=== PATIENT | male | born 1955 | race Caucasian/White ===

== ENCOUNTER 2023-07-14 05:51 | Emergency (ER) | payer OTHER ==
[2023-07-14] MEDS ORDERED: NA CHLORIDE 0.9% 1,000 ML ONE (06:51)
[2023-07-14 06:55] LABS: Absolute Basophils 0.1 K/uL (0-0.5); Absolute Eosinophils 0.4 K/uL (0-0.5); Absolute Lymphocytes (CBC) 2.5 K/uL (0.7-4.9); Absolute Monocytes 0.8 K/uL (0.1-1.3); Absolute Neutrophil 5.4 K/uL (1.8-8.0); Basophils % 0.6 % (0-1.3); Eosinophils % 4.1 % (0-4.4); Hematocrit 44.8 % (39.6-49.0); Hemoglobin 15.1 g/dL (13.6-17.9); Lymphocytes % 27.7 % (15.3-44.8); MCH 31.3 pg (27.0-35.0); MCHC 33.7 g/dL (32.0-36.0); MPV 7.8 fL (7.6-11.3); Monocytes % 8.7 % (3.3-12.3); Neutrophils % 58.9 % (41.7-73.7); Nucleated Red Blood Cells % 0.1 % (0-0); Platelets 316 thou/uL (152-406); RBC Red Blood Cell Count 4.82 M/uL (4.33-5.43); Red Cell Distribution Width 13.4 % (12.1-15.2)
[2023-07-14 07:09] LABS: Albumin 3.6 g/dL (3.4-5.0); Albumin/Globulin Ratio 0.8 (1.1-1.8); Anion Gap 6.1 mEq/L (5.0-15.0); Bilirubin Direct 0.2 mg/dL (0-0.2); Bilirubin Indirect, Calculated 0.5 mg/dL (0.2-0.8); Bilirubin Total 0.7 mg/dL (0.2-1.0); Globulin 4.4 g/dL (2.3-3.5); Magnesium 1.9 mg/dL (1.6-2.4); Potassium 4.1 mEq/L (3.5-5.1); Thyroid Stimulating Hormone 2.61 uIU/mL (0.358-3.740); Troponin High Sensitivity 12.2 pg/mL (<58.9)
--- NOTE | 2023-07-14 08:59 | ER ---
Nurse's Notes [facility] Name: Robson Kilgore Age: 67 yrs Sex: Male : 1955 Arrival Date: 07/14/2023 Time: 05:51 Bed 4 Private MD: Diagnosis: Unspecified atrial flutter Presentation: 07/13 05:58 Chief complaint: Patient states: SOB with elevated HR 153,onset 0400 this AM. Patient pf1 denies any chest pain. 05:58 Method Of Arrival: Wheelchair pf1 05:58 Coronavirus screen: Vaccine status: Patient reports being unvaccinated. Client denies pf1 travel out of the [place] in the last 14 days. Ebola Screen: Patient negative for fever greater than or equal to 101.5 degrees Fahrenheit, and additional compatible Ebola Virus Disease symptoms. Initial Sepsis Screen: Does the patient meet any 2 criteria? HR > 90 bpm. No. Patient's initial sepsis screen is negative. Does the patient have a suspected source of infection? No. Patient's initial sepsis screen is negative. Risk Assessment: Do you want to hurt yourself or someone else? Patient reports no desire to harm self or others. Onset of symptoms was July 14, 2023 at 04:00. 05:58 Acuity: ARLETTE 2 pf1 Triage Assessment: 05:58 General: Appears in no apparent distress. comfortable, well groomed, well developed, pf1 Behavior is calm, cooperative, appropriate for age, quiet. Pain: Denies pain. 05:58 Cardiovascular: Reports shortness of breath, with elevated HR 153. since 0400. pf1 Respiratory: Reports shortness of breath with elevated HR 153 Airway is patent Respiratory effort is even, unlabored, Respiratory pattern is regular, symmetrical. Historical: - Allergies: 06:18 No Known Allergies; pf1 - PMHx: 06:18 Hypertensive disorder; Hypercholesterolemia; pf1 06:20 BPH; GERD; Asthma; pre-diabetic; pf1 - PSHx: 06:18 carpal tunnel; pf1 - Immunization history:: Adult Immunizations not up to date, Client reports having NOT received the Covid vaccine. Last tetanus immunization: < 10 years ago Flu vaccine is not up to date. - Infectious Disease History:: Denies. - Family history:: not pertinent. - Social history:: Smoking status: Patient reports the use of cigarette tobacco products, denies chronic smoking, but will smoke occasionally, cigars, Patient uses alcohol, on a daily basis. Patient/guardian denies using street drugs. Screenin:04 [facility] ED Fall Risk Assessment (Adult) History of falling in the last 3 months, lg3 including since admission No falls in past 3 months (0 pts) Confusion or Disorientation No (0 pts) Intoxicated or Sedated No (0 pts) Impaired Gait No (0 pts) Mobility Assist Device Used No (0 pt) Altered Elimination No (0 pt) Score/Fall Risk Level 0 - 2 = Low Risk Oriented to surroundings, Maintained a safe environment, Educated pt \T\ family on fall prevention, incl call for assistance when getting out of bed, Assessed \T\ reinforced patient's understanding of fall precautions. Abuse screen: Denies threats or abuse. Denies injuries from another. Nutritional screening: No deficits noted. Tuberculosis screening: No symptoms or risk factors identified. Assessment: 06:04 General: Appears in no apparent distress. uncomfortable, Behavior is calm, cooperative. lg3 Pain: Denies pain. Neuro: No deficits noted. Stein Agitation-Sedation Scale (RASS): 0 - Alert and Calm Level of Consciousness is awake, alert, obeys commands, Oriented to person, place, time, situation. Cardiovascular: Reports palpitations, shortness of breath, Denies chest pain, Rhythm is atrial flutter. Respiratory: Reports shortness of breath at rest Airway is patent Trachea midline Respiratory effort is even, unlabored, Respiratory pattern is regular, symmetrical, Breath sounds are clear bilaterally. GI: No deficits noted. No signs and/or symptoms were reported involving the gastrointestinal system. Abdomen is round non-distended, obese. : No deficits noted. No signs and/or symptoms were reported regarding the genitourinary system. EENT: No deficits noted. No signs and/or symptoms were reported regarding the EENT system. Derm: No deficits noted. No signs and/or symptoms reported regarding the dermatologic system. Skin is intact, is healthy with good turgor, Skin is dry, Skin is normal, Skin temperature is warm. Musculoskeletal: No deficits noted. No signs and/or symptoms reported regarding the musculoskeletal system. Circulation, motion, and sensation intact. Range of motion: intact in all extremities. 07:00 Reassessment: RECD REPORT FROM SUSHMA LAY. 67YO WM P/W SOB AND AFIB/RVR, PT CURRENTLY IN bp SR. 08:12 Reassessment: Patient appears in no apparent distress at this time. Patient is alert, bp oriented x 3, equal unlabored respirations, skin warm/dry/pink. REPEAT TROP SENT. Patient states symptoms have improved. 09:06 Reassessment: No changes from previously documented assessment. Patient and/or family mb9 updated on plan of care and expected duration. Pain level reassessed. Patient is alert, oriented x 3, equal unlabored respirations, skin warm/dry/pink. Vital Signs: 05:58 BP 125 / 103; Pulse 155; Resp 20; Temp 98.3; Pulse Ox 97% on R/A; Weight 112.04 kg; pf1 Height 5 ft. 10 in. ; Pain 0/10; 06:34 BP 81 / 59; Pulse 89; Resp 16 S; Pulse Ox 96% on R/A; lg3 07:51 BP 120 / 71; Pulse 70; ec2 08:00 BP 120 / 71; Pulse 65; Resp 11; Pulse Ox 96% ; bp 09:07 BP 122 / 74; Pulse 68; Resp 16; Pulse Ox 100% on R/A; mb9 05:58 Body Mass Index 35.44 (112.04 kg, 177.8 cm) pf1 05:58 Pain Scale: Adult pf1 ED Course: 05:54 Patient arrived in ED. mr 05:57 Ion Desir MD is Attending Physician. rt 06:04 Patient has correct armband on for positive identification. Placed in gown. Bed in low lg3 position. Call light in reach. Side rails up X 1. Client placed on continuous cardiac and pulse oximetry monitoring. NIBP monitoring applied. electronic device monitor on. Door closed. Noise minimized. Warm blanket given. Family accompanied patient. 06:04 Initial lab(s) drawn, by ED staff, sent to lab. EKG done, by ED staff, reviewed by Ion Desir MD. Inserted saline lock: 20 gauge in right antecubital area, using aseptic technique. Blood collected. 06:18 Triage completed. pf1 06:25 XRAY Chest (1 view) In Process Unspecified. EDMS 06:34 EKG done, by ED staff, reviewed by Ion Desir MD. lg3 06:53 Troponin HS Sent. wm 06:53 NT PRO-BNP Sent. wm 06:53 Magnesium Sent. wm 06:53 LFT's Sent. wm 06:53 CBC with Diff Sent. wm 06:53 Basic Metabolic Panel Sent. wm 06:53 TSH Sent. wm 07:05 Attending Physician role handed off by Ion Desir MD ec2 07:05 David Hannah MD is Attending Physician. ec2 07:09 Mike Neal, RN is Primary Nurse. bp 08:30 Troponin High Sensitivity Sent. bp 08:30 EKG done, by ED staff, reviewed by David Hannah MD. bp 08:59 Juan Albright MD is Referral Physician. ec2 09:07 No provider procedures requiring assistance completed. IV discontinued, intact, mb9 bleeding controlled, No redness/swelling at site. Pressure dressing applied. Administered Medications: 06:14 CANCELLED (Duplicate Order): [id number] mg IVP once; Over 2 minutes rt 06:57 Drug: NS 0.9% IV 1000 ml IV at 1000 ml once Route: IV; Rate: 1000 ml; Site: right jw7 antecubital; 09:15 Follow up: IV Status: Completed infusion; IV Intake: 1000ml bp 09:15 Not Given (Physician Discretion): [id number] mg IVP once; Over 2 Minutes bp Intake: 09:15 IV: 1000ml; Total: 1000ml. bp Outcome: 08:59 Discharge ordered by . ec2 09:07 Discharged to home ambulatory, with family, mb9 09:07 Condition: stable 09:07 Discharge instructions given to patient, Instructed on discharge instructions, follow up and referral plans. Demonstrated understanding of instructions, follow-up care, medications, Prescriptions given X 1, 09:07 Patient left the ED. mb9 Signatures: Dispatcher [employer] EDUT CortesHali, Reg Reg mr Mike Neal, RN RN Diya Akhtar RN RN gwyn3 Akosua Westfall Sushma Campbell RN RN jwHali Todd RN RN mb9 Ion Desir MD MD rt Molly Rubin RN RN pf1 David Hannah MD MD ec2 Corrections: (The following items were deleted from the chart) 06:22 06:20 PMHx: pre-debatic; pf1 pf1
--- NOTE | 2023-07-14 08:59 | EDPHYS ---
Physician Documentation [facility] Name: Robson Kilgore Age: 67 yrs Sex: Male : 1955 Arrival Date: 07/14/2023 Time: 05:51 Bed 4 Private MD: ED Physician David Hannah HPI: 07/13 06:19 This 67 yrs old Male presents to ER via Wheelchair with complaints of Breathing rt Difficulty, Fast heart rate. 06:19 Patient presents to the ED with reported difficulty breathing starting about 3 in the rt morning. States that the symptoms have persisted. It is worse with exertion, better with rest. Denies orthopnea. Denies chest pain. Does report a lightheadedness, denies other acute complaints, symptoms are moderate in severity, no other aggravating or alleviating factors.. Historical: - Allergies: 06:18 No Known Allergies; pf1 - PMHx: 06:18 Hypertensive disorder; Hypercholesterolemia; pf1 06:20 BPH; GERD; Asthma; pre-diabetic; pf1 - PSHx: 06:18 carpal tunnel; pf1 - Immunization history:: Adult Immunizations not up to date, Client reports having NOT received the Covid vaccine. Last tetanus immunization: < 10 years ago Flu vaccine is not up to date. - Infectious Disease History:: Denies. - Family history:: not pertinent. - Social history:: Smoking status: Patient reports the use of cigarette tobacco products, denies chronic smoking, but will smoke occasionally, cigars, Patient uses alcohol, on a daily basis. Patient/guardian denies using street drugs. ROS: 06:19 Constitutional: Negative for fever, chills, and weight loss, Cardiovascular: Negative rt for chest pain, palpitations, and edema, Abdomen/GI: Negative for abdominal pain, nausea, vomiting, diarrhea, and constipation, MS/Extremity: Negative for injury and deformity, Skin: Negative for injury, rash, and discoloration, 06:19 Respiratory: Positive for shortness of breath, Negative for cough, 06:19 Neuro: Positive for dizziness, Negative for altered mental status, Exam: 06:19 Constitutional: This is a well developed, well nourished patient who is awake, alert, rt and in no acute distress. Head/Face: Normocephalic, atraumatic. Chest/axilla: Normal chest wall appearance and motion. Nontender with no deformity. No lesions are appreciated. Cardiovascular: Regular rate and rhythm with a normal S1 and S2. No gallops, murmurs, or rubs. Normal PMI, no JVD. No pulse deficits. Respiratory: Lungs have equal breath sounds bilaterally, clear to auscultation and percussion. No rales, rhonchi or wheezes noted. No increased work of breathing, no retractions or nasal flaring. Abdomen/GI: Soft, non-tender, with normal bowel sounds. No distension or tympany. No guarding or rebound. No evidence of tenderness throughout. Skin: Warm, dry with normal turgor. Normal color with no rashes, no lesions, and no evidence of cellulitis. MS/ Extremity: Pulses equal, no cyanosis. Neurovascular intact. Full, normal range of motion. Neuro: Awake and alert, GCS 15, oriented to person, place, time, and situation. Cranial nerves II-XII grossly intact. Motor strength 5/5 in all extremities. Sensory grossly intact. Cerebellar exam normal. Normal gait. 06:19 ECG was reviewed by the Attending Physician. 06:50 ECG was reviewed by the Attending Physician. rt Vital Signs: 05:58 BP 125 / 103; Pulse 155; Resp 20; Temp 98.3; Pulse Ox 97% on R/A; Weight 112.04 kg; pf1 Height 5 ft. 10 in. ; Pain 0/10; 06:34 BP 81 / 59; Pulse 89; Resp 16 S; Pulse Ox 96% on R/A; lg3 07:51 BP 120 / 71; Pulse 70; ec2 08:00 BP 120 / 71; Pulse 65; Resp 11; Pulse Ox 96% ; bp 09:07 BP 122 / 74; Pulse 68; Resp 16; Pulse Ox 100% on R/A; mb9 05:58 Body Mass Index 35.44 (112.04 kg, 177.8 cm) pf1 05:58 Pain Scale: Adult pf1 MDM: 05:59 Patient medically screened. rt 07:50 ED course: Patient signed out to me by previous physician, in brief patient arrives ec2 today due to concern for elevated heart rate, patient noted to have atrial flutter, converted to normal sinus rhythm with no intervention. Plan is to follow-up lab work and chest x-ray.. 07:51 Data reviewed: vital signs. ED course: Chest x-ray independently reviewed and ec2 interpreted by me, shows no acute intrathoracic process. Patient remains in normal sinus rhythm with rates in the 70s to 80s.. 07:55 ED course: Metabolic profile is reassuring, LFTs reassuring, BNP minimally elevated. ec2 Reassuring CBC, troponin within normal ranges, TSH within appropriate ranges. Will obtain repeat EKG and troponin. . 08:22 ED course: Repeat EKG independently reviewed and interpreted by me, shows normal sinus ec2 rhythm, rate 73, no acute ST segment elevations, intervals are nonconcerning.. 08:28 ED course: Additionally considered other processes such as PE, would not expect ec2 symptoms and self resolve with no intervention. Additionally patient without hypoxia or respiratory complaints currently.. 08:43 ED course: Repeat troponin is unremarkable.. ec2 08:47 ED course: Patient with resolved atrial flutter at this time. Patient does have a ec2 [id number] score of 2 for his age and HTN hx, will start the pt on AC. . 07/13 06:05 Order name: Basic Metabolic Panel; Complete Time: 07:53 rt 07/13 06:05 Order name: CBC with Diff; Complete Time: 07:53 rt 07/13 06:05 Order name: LFT's; Complete Time: 07:53 rt 07/13 06:05 Order name: Magnesium; Complete Time: 07:53 rt 07/13 06:05 Order name: NT PRO-BNP; Complete Time: 07:53 rt 07/13 06:05 Order name: Troponin HS; Complete Time: 07:53 rt 07/13 06:05 Order name: TSH; Complete Time: 07:53 rt 07/13 07:55 Order name: Troponin High Sensitivity; Complete Time: 08:42 ec2 07/13 06:05 Order name: XRAY Chest (1 view) rt 07/13 06:05 Order name: Cardiac monitoring; Complete Time: 06:31 rt 07/13 06:05 Order name: EKG - Nurse/Tech; Complete Time: 06:31 rt 07/13 06:05 Order name: IV Saline Lock; Complete Time: 06:31 rt 07/13 06:05 Order name: Labs collected and sent; Complete Time: 06:31 rt 07/13 06:05 Order name: O2 Per Protocol; Complete Time: 06:31 rt 07/13 06:05 Order name: O2 Sat Monitoring; Complete Time: 06:31 rt 07/13 07:55 Order name: EKG - Nurse/Tech; Complete Time: 08:30 ec2 07/13 07:55 Order name: Misc. Order: repeat ekg/trop; Complete Time: 08:30 ec2 EC:19 Rate is 154 beats/min. Rhythm is regular, A flutter with No ectopy, Rate related ST and rt T wave changes. QRS [place] is Normal. QRS interval is normal. QT interval is normal. No Q waves. 06:50 Rate is 93 beats/min. Rhythm is regular, Normal Sinus Rhythm with No ectopy. QRS [place] rt is Normal. AR interval is normal. QRS interval is normal. QT interval is normal. No Q waves. No ST changes noted. Administered Medications: 06:14 CANCELLED (Duplicate Order): [id number] mg IVP once; Over 2 minutes rt 06:57 Drug: NS 0.9% IV 1000 ml IV at 1000 ml once Route: IV; Rate: 1000 ml; Site: right jw7 antecubital; 09:15 Follow up: IV Status: Completed infusion; IV Intake: 1000ml bp 09:15 Not Given (Physician Discretion): [id number] mg IVP once; Over 2 Minutes bp Disposition Summary: 07/14/23 08:59 Discharge Ordered Notes: Location: Home ec2 Condition: Stable ec2 Diagnosis - Unspecified atrial flutter ec2 Followup: ec2 - With: Private Physician - When: - Reason: Recheck today's complaints Followup: ec2 - With: Juan Albright MD - When: - Reason: Recheck today's complaints Discharge Instructions: - Discharge Summary Sheet lg3 - Atrial Flutter ec2 - Bleeding Precautions When on Anticoagulant Therapy, Adult ec2 Forms: - SBAR form lg3 - Medication Reconciliation Form ec2 - Antibiotic Education ec2 - Prescription Opioid Use ec2 - Patient Portal Instructions ec2 - Leadership Thank You Letter ec2 Prescriptions: - Eliquis 5 mg Oral tablet - take 1 tablet ORAL route every 12 hours; 60 tablet; Refills: 0, Product ec2 Selection Permitted Signatures: Dispatcher [facility] FRANKONY Sushma Campbell RN RN jw7 Ion Desir MD MD rt Molly Rubin RN RN pf1 David Hannah MD MD ec2 Mike Neal RN bp Corrections: (The following items were deleted from the chart) 06:06 06:06 BASIC METABOLIC PANEL+C.LAB.BRZ ordered. EDMS EDMS 06:06 06:06 CBC+H.LAB.BRZ ordered. EDMS EDMS 06:06 06:06 HEPATIC FUNCTION+C.LAB.BRZ ordered. EDMS EDMS 06:06 06:06 MAGNESIUM+C.LAB.BRZ ordered. EDMS EDMS 06:06 06:06 PROBNP+C.LAB.BRZ ordered. EDMS EDMS 06:06 06:06 Troponin High Sensitivity+C.LAB.BRZ ordered. EDMS EDMS 06:06 06:06 THYROID STIMULAT HORMONE+C.LAB.BRZ ordered. EDMS EDMS 06:06 06:06 Chest Single View+RAD.RAD.BRZ ordered. EDMS EDMS 06:14 06:14 Diltiazem IVP 10 mg IVP once; Over 2 minutes ordered. rt rt 06:22 06:20 PMHx: pre-debatic; pf1 pf1
[2023-07-14 09:23] VITALS: BP 122/74; TEMP 98.3; O2SAT 100
--- NOTE | 2023-07-14 15:01 | RAD REPORT ---
EXAM DESCRIPTION: RAD - Chest Single View - 07/14/2023 6:23 am CLINICAL HISTORY: DYSPNEA COMPARISON: None TECHNIQUE: Single AP view of the chest. FINDINGS: Lung volumes adequate. Cardiac silhouette is normal in size. No pneumothorax. No large pleural effusion. No focal consolidation. No acute bony finding. IMPRESSION: No evidence of acute cardiopulmonary disease. Electronically signed by: Corona Moeller MD 07/14/2023 06:34 AM CDT Due to temporary technical issues with the PACS/Fluency reporting system, reports are being signed by the in house radiologists without review as a courtesy to insure prompt reporting. The interpreting radiologist is fully responsible for the content of the report.
--- NOTE | 2023-07-17 13:28 | EKG ---
Test Date: 2023-07-14 Test Time: 08:19:39 Draw Furnace Tender: BP MEASUREMENT RESULTS: Intervals: Rate: 73 MT: 152 QRSD: 86 QT: 402 QTc: 442 [place]: P: 64 MT: 152 QRS: 11 T: 4 INTERPRETIVE STATEMENTS: Normal sinus rhythm Normal ECG Compared to ECG 07/14/2023 06:28:46 Myocardial infarct finding no longer present Electronically Signed On 07-17-23 13:19:09 CDT by Juan Albright
--- NOTE | 2023-07-17 13:28 | EKG ---
Test Date: 2023-07-14 Test Time: 06:07:23 Sales Rep: MEASUREMENT RESULTS: Intervals: Rate: 154 MO: 134 QRSD: 112 QT: 254 QTc: 406 [place]: P: MO: 134 QRS: 0 T: -68 INTERPRETIVE STATEMENTS: Sinus tachycardia Nonspecific ST and T wave abnormality Abnormal ECG No previous ECG available for comparison Electronically Signed On 07-17-23 13:19:36 CDT by Juan Albright
--- NOTE | 2023-07-17 13:28 | EKG ---
Test Date: 2023-07-14 Test Time: 06:28:46 Linen Room Houseperson: WM MEASUREMENT RESULTS: Intervals: Rate: 93 [place]: 148 QRSD: 86 QT: 360 QTc: 447 [place]: P: 63 OH: 148 QRS: 10 T: 12 INTERPRETIVE STATEMENTS: Normal sinus rhythm Cannot rule out Anterior infarct, age undetermined Abnormal ECG Compared to ECG 07/14/2023 06:07:23 Myocardial infarct finding now present Sinus tachycardia no longer present ST (T wave) deviation no longer present Electronically Signed On 07-17-23 13:19:35 CDT by Juan Albright
== END 2023-07-14 09:07 | disposition home or self-care (01) ==
LOC: ER 05:51
DX: I48.92 Unspecified atrial flutter (principal); I10 Essential (primary) hypertension; E78.00 Pure hypercholesterolemia, unspecified; Z72.0 Tobacco use; Z28.310 Unvaccinated for COVID-19
CPT/HCPCS: 96361; 85025; 80048; 36415; 83735; 80076; 84443; 84484 ×2; 83880; 71045; 96360; 99285; J7030; 93005

== ENCOUNTER 2024-01-11 06:56 | Day surgery (SDC) | payer OTHER ==
[2024-01-05 15:19] LABS: Absolute Eosinophils 0.7 K/uL (0-0.5); Absolute Lymphocytes (CBC) 2.9 K/uL (0.7-4.9); Absolute Monocytes 0.9 K/uL (0.1-1.3); Absolute Neutrophil 4.3 K/uL (1.8-8.0); Basophils % 0.5 % (0-1.3); Eosinophils % 7.9 % (0-4.4); Hematocrit 43.5 % (39.6-49.0); Hemoglobin 14.2 g/dL (13.6-17.9); Lymphocytes % 32.9 % (15.3-44.8); MCH 30.9 pg (27.0-35.0); MCHC 32.7 g/dL (32.0-36.0); MCV 94.4 fL (80-100); MPV 7.8 fL (7.6-11.3); Monocytes % 10.1 % (3.3-12.3); Neutrophils % 48.6 % (41.7-73.7); Nucleated Red Blood Cells % 0.1 % (0-0); Platelets 316 thou/uL (152-406); Red Cell Distribution Width 12.7 % (12.1-15.2)
[2024-01-05 15:23] LABS: PT Prothrombin Time 16.8 SECONDS (9.4-12.5); PTT, Activated Partial Thromb 34.2 SECONDS (24.3-36.9); Protime INR 1.52
[2024-01-05 15:31] LABS: Anion Gap 6.8 mEq/L (5.0-15.0); Potassium 4.8 mEq/L (3.5-5.1)
--- NOTE | 2024-01-09 12:27 | EKG ---
Test Date: 2024-01-05 Test Time: 14:57:35 Commodity Management Specialist: ALEXANDER MEASUREMENT RESULTS: Intervals: Rate: 51 SD: 172 QRSD: 92 QT: 438 QTc: 403 [place]: P: 61 SD: 172 QRS: 16 T: 20 INTERPRETIVE STATEMENTS: Sinus bradycardia Low voltage QRS Borderline ECG Compared to ECG 12/14/2023 15:09:32 Low QRS voltage now present Electronically Signed On 01-09-24 12:19:25 ANIMAL PHYSIOLOGIST by David Bui
[2024-01-11] MEDS ORDERED: NA CHLORIDE 0.9% 500 ML ONE (06:59)
[2024-01-11] MEDS ORDERED: HEPARIN 5000 UNIT/ML 1 ML VIAL ONE (07:30)
[2024-01-11] MEDS ORDERED: NITROGLYCERIN/D5W 50 MG/250 ML BTL IV ONE (07:30)
[2024-01-11] MEDS ORDERED: ATROPINE SULF 1 MG/10 ML SYR IV ONE (07:30)
[2024-01-11] MEDS ORDERED: MIDAZOLAM HCL 2 MG/2 ML INJ ONE (07:30)
[2024-01-11] MEDS ORDERED: LIDOCAINE 1% 20 ML MDV ONE (07:30)
[2024-01-11] MEDS ORDERED: HEPA 1000U/500MLS 2,000 UNIT/1,000 ML BAG IV ONE (07:30)
[2024-01-11] MEDS ORDERED: FENTANYL CITR 100 MCG/2 ML ONE (07:31)
[2024-01-11] MEDS ORDERED: ASPIRIN 325 MG TAB ONE (07:32)
[2024-01-11] MEDS ORDERED: TICAGRELOR 90 MG TABLET PO ONE (07:32)
[2024-01-11] MEDS ORDERED: CLOPIDOGREL 75 MG TABLET ONE ×3 (07:32→12:39)
[2024-01-11] MEDS ORDERED: HEPARIN 10,000 UNIT/10 ML VIAL IV ONE ×2 (07:36→08:56)
[2024-01-11 12:11] VITALS: O2SAT 99
[2024-01-11 13:29] VITALS: BP 123/75
--- NOTE | 2024-01-11 23:14 | OP ---
Date of Procedure: 01/11/2024 Surgeon: David Bui Procedures Performed: 1.Selective coronary angiogram. 2.Left heart catheterization. 3.Percutaneous coronary intervention of the left anterior descending with Synergy 3.5 x 38 mm drug-e luting stent. Indication For Procedure: Chest pains, nonsustained ventricular tachycardias on event monitor. Access: Right radial, closed by TR band. Complications: None. Estimated Blood Loss: Less than 50 cc. Sedation Time: 30 minutes with 1 of Versed and 25 fentanyl. Description Of Procedure: After risks, benefits, and alternatives were explained to the patient, the patient agreed to proceed with procedure and signed informed consent. The patient was moved back to the laborer gold leaf, and prepped and draped in sterile fashion. Time-out was performed. Sedation was admi nistered. Next, the right radial access was obtained using an ultrasound-guided micropuncture techni que. That was followed by [place] 4 catheter was advanced over J-wire to the LV cavity. LVEDP was obt ained. Pullback did not show any gradient. Same catheter was used for selective angiogram of the le ft and right coronary systems. The catheter was later exchanged for an EBU 3.5 mm guide. Heparin wa s administered. ACT was therapeutic. Runthrough wire was passed across the lesions. Pre-dilated th e lesions with an NC 3.0 mm balloon. Next, we tried to pass the Synergy 3.5 x 38 mm drug-eluting viet nt, but unable to deliver, so a GuideLiner was used for support and then after the stent was able to deliver that stent was postdilated with NC 4.0 mm balloon. Final angiogram shows TRUDI-[address] was removed over a J-wire. Sheath was removed. TR band was applied. Hemostasis achieved and th e patient was moved to recovery in stable condition. Findings: 1.Left main: Normal. 2.LAD: Proximal, mild luminal irregularities. Mid, tortuous 80% disease, status post PCI with Syne rgy 3.5 x 38 mm drug-eluting stent. Then, mid to distal, mild luminal irregularities with significan t tortuosity. 3.Left circumflex: Mild luminal irregularities. 4.RCA: Ostial to proximal 60% to 70% disease, which shows significant dampening of the pressures wh en we injected the RCA, so that lesion most likely was significant. Mid to distal, very tortuous, mi ld luminal irregularities. 5.LVEDP: 9 mmHg. Assessment And Plan: 1.Significant mid left anterior descending disease, status post percutaneous coronary intervention w ith Synergy 3.5 x 38 mm drug-eluting stent. 2.Significant ostial to proximal right coronary artery disease with significant dampening on the cat heter pressure upon engaging. That will need staged percutaneous coronary intervention in 4 to 6 wee ks. Plan will be: 1.Aspirin 81 mg daily for life. 2.Plavix 75 mg daily for 12 months. 3.The patient to resume Eliquis tomorrow morning. JARROD Voice ID: [id number] Report ID: [id number]
== END 2024-01-11 12:45 | disposition home or self-care (01) ==
LOC: CCL 06:56
PROVIDERS: ATTEND Internal Medicine Interventional Cardiology
DX: I25.10 Atherosclerotic heart disease of native coronary artery without angina pectoris (principal); I47.20 Ventricular tachycardia, unspecified; I77.1 Stricture of artery; I10 Essential (primary) hypertension; E78.2 Mixed hyperlipidemia; Z79.01 Long term (current) use of anticoagulants; Z79.899 Other long term (current) drug therapy; F17.220 Nicotine dependence, chewing tobacco, uncomplicated
CPT/HCPCS: 93005; 85025; 80048; 36415; 85610; 85347 ×2; 85730; 93458; 76937; C1893; Q9967; C1725; C9600; J1644; J2003; J2250; J3010; J7040; 99152; 99153; J0461

== ENCOUNTER 2024-02-13 07:00 | Day surgery (SDC) | payer OTHER ==
[2024-02-09 13:30] LABS: Absolute Eosinophils 0.3 K/uL (0-0.5); Absolute Lymphocytes (CBC) 1.9 K/uL (0.7-4.9); Absolute Monocytes 0.5 K/uL (0.1-1.3); Absolute Neutrophil 3.9 K/uL (1.8-8.0); Basophils % 0.6 % (0-1.3); Eosinophils % 5.2 % (0-4.4); Hematocrit 41.8 % (39.6-49.0); Hemoglobin 13.6 g/dL (13.6-17.9); Lymphocytes % 28.3 % (15.3-44.8); MCH 30.6 pg (27.0-35.0); MCHC 32.5 g/dL (32.0-36.0); MCV 94.1 fL (80-100); Monocytes % 7.5 % (3.3-12.3); Neutrophils % 58.4 % (41.7-73.7); Platelets 291 thou/uL (152-406); RBC Red Blood Cell Count 4.44 M/uL (4.33-5.43); Red Cell Distribution Width 13.2 % (12.1-15.2)
[2024-02-09 13:36] LABS: PT Prothrombin Time 16.5 SECONDS (9.4-12.5); PTT, Activated Partial Thromb 33.3 SECONDS (24.3-36.9); Protime INR 1.49
[2024-02-09 13:45] LABS: Anion Gap 7.6 mEq/L (5.0-15.0); Potassium 3.6 mEq/L (3.5-5.1)
[2024-02-13] MEDS ORDERED: NA CHLORIDE 0.9% 500 ML ONE (07:06)
[2024-02-13] MEDS ORDERED: HEPA 1000U/500MLS 2,000 UNIT/1,000 ML BAG IV ONE (07:21)
[2024-02-13] MEDS ORDERED: LIDOCAINE 1% 20 ML MDV ONE (07:22)
[2024-02-13] MEDS ORDERED: NITROGLYCERIN/D5W 50 MG/250 ML BTL IV ONE (07:22)
[2024-02-13] MEDS ORDERED: ATROPINE SULF 1 MG/10 ML SYR IV ONE (07:22)
[2024-02-13] MEDS ORDERED: HEPARIN 10,000 UNIT/10 ML VIAL IV ONE (07:22)
[2024-02-13] MEDS ORDERED: CLOPIDOGREL 75 MG TABLET ONE (07:23)
[2024-02-13] MEDS ORDERED: ASPIRIN 325 MG TAB ONE (07:23)
[2024-02-13] MEDS ORDERED: MIDAZOLAM HCL 2 MG/2 ML INJ ONE (07:23)
[2024-02-13] MEDS ORDERED: HEPARIN 5000 UNIT/ML 1 ML VIAL ONE (07:23)
[2024-02-13] MEDS ORDERED: TICAGRELOR 90 MG TABLET PO ONE (07:23)
[2024-02-13] MEDS ORDERED: FENTANYL CITR 100 MCG/2 ML ONE (07:24)
[2024-02-13 07:28] VITALS: TEMP 98.2
[2024-02-13 12:47] VITALS: BP 131/52; O2SAT 98
--- NOTE | 2024-02-14 19:45 | OP ---
Date of Procedure: 02/13/2024 Surgeon: David Bui Indication For Procedure: Staged PCI of the RCA due to significant RCA disease from a prior coronary angiogram. Procedure Performed: PCI of the RCA with Synergy 3.5 x 16 mm drug-eluting stent. Complications: None. Estimated Blood Loss: Less than 50 cc. Access: Right radial, closed by TR band. Sedation Time: 30 minutes with 1 of Versed and 50 of fentanyl. Description Of Procedure: After risks, and benefits, and alternatives were explained to the patient, patient agreed to proceed with procedure and signed informed consent. The patient was brought back to the laboratory mechanic helper, prepped and draped in sterile fashion. Time-out was performed. Sedation was admini stered. Next, the right radial access was obtained using ultrasound-guided micropuncture technique. A JR4 guide was advanced over a J-wire to the aortic root and heparin was administered. ACT was the rapeutic. Runthrough wire was passed across the lesion, pre-dilated the lesion with an NC 3.0 mm bal loon. Next, the Synergy 3.5 x 16 mm drug-eluting stent was placed across the lesion. This postdilat ed with an NC 4.0 mm balloon. Final angiogram shows TRUDI-3 flow. Wire was removed. The catheter wa s removed over a J-wire. Sheath was removed. TR band was applied. Hemostasis was achieved and the patient was moved back to recovery in stable condition. Findings: RCA; ostial 80% disease with significant dampening of the catheter, status post PCI with S ynergy 3.5 x 16 mm drug-eluting stent, mid to distal mild luminal irregularities. Assessment And Plan: Significant ostial RCA disease, status post PCI with Synergy 3.5 x 16 mm drug-e luting stent. Plan is to continue aspirin 81 mg daily for life. Plavix 300 x1 was given in the laboratory mechanic helper. Continue Plavix 75 mg daily for 12 months. CLARK/MODL Voice ID: [id number] Report ID: [id number]
--- NOTE | 2024-02-16 16:15 | EKG ---
Test Date: 2024-02-09 Test Time: 14:10:36 [employer]visor [employer]: JOSEFINA MEASUREMENT RESULTS: Intervals: Rate: 61 [place]: 160 QRSD: 90 QT: 414 QTc: 416 [place]: P: 54 [place]: 160 QRS: -10 T: -12 INTERPRETIVE STATEMENTS: Normal sinus rhythm Normal ECG Compared to ECG 01/05/2024 14:57:35 Sinus bradycardia no longer present Electronically Signed On 02-16-24 16:07:13 DELI CLERK by David Bui
== END 2024-02-13 12:35 | disposition home or self-care (01) ==
LOC: CCL 07:00
PROVIDERS: ADMIT Internal Medicine; ATTEND Internal Medicine Interventional Cardiology
DX: I25.10 Atherosclerotic heart disease of native coronary artery without angina pectoris (principal); I47.20 Ventricular tachycardia, unspecified; I48.0 Paroxysmal atrial fibrillation; I10 Essential (primary) hypertension; E78.5 Hyperlipidemia, unspecified; E11.9 Type 2 diabetes mellitus without complications; F17.220 Nicotine dependence, chewing tobacco, uncomplicated; Z79.01 Long term (current) use of anticoagulants; Z79.82 Long term (current) use of aspirin; Z79.84 Long term (current) use of oral hypoglycemic drugs; Z79.899 Other long term (current) drug therapy
CPT/HCPCS: 93005; 85025; 80048; 36415; 85610; 82947; 85730; 93454; 76937; C1893; Q9966; C1725; C9600; J1644; J2003; J2250; J3010; J7040; 99152; 99153; J0461